=== PATIENT | male | born 1960 | race Caucasian/White ===

== ENCOUNTER → 2016-04-19 | Outpatient (CLI) | payer BC ==
[~2016-04-19] MED LIST: AMITRIPTYLINE H10 MG PO; ASPIR 8181 M1 PO; ASPIR-LOW81 MG PO; ATORVASTATIN CA20 MG PO; COZAAR100 MG PO; COZAAR50 MG PO; FAMOTIDINE20 MG PO; FARXIGA5 MG PO; GABAPENTIN600 MG PO; JANUMET 50/11 TABLET PO; JANUMET XR 50-1 EAC1 PO; JARDIANCE25 MG PO; LIPITOR20 MG PO; LO-DOSE ASPIRIN81 M1 PO; METFORMIN HCL500 MG PO; METOCLOPRAM5 MG/1 M1 PO; NICOTINE PATCH1 EAC1 TD; OXYCODONE HCL5 MG PO; OXYCONTIN20 MG PO; PERCOCET 10/1 TABLET PO; SINGULAIR10 MG PO; SYMBICORT60 INHALAT IH; TRULICITY1.5 MG/0.5 SC; TYLENOL REGULA325 MG PO; VOLTAREN75 MG PO; ZYVOX600 MG PO
== END | disposition home or self-care (01) ==
LOC: PICC 08:59
DX: L97.511 Non-pressure chronic ulcer of other part of right foot limited to breakdown of skin (principal)
CPT/HCPCS: 76937

== ENCOUNTER 2017-01-09 07:28 | Day surgery (SDC) | payer BC ==
[~2017-01-09] VITALS: Ht 185.4 cm; Wt 104.0 kg
[~2017-01-09 07:28] MED LIST changes: +AMLODIPINE BESYL5 MG PO; +GLYXAMBI 25 MG1 EACH PO
[2017-01-09 08:23] LABS: HEMATOCRIT 47.4 % (38.0-50.0); MCH 29.4 PG (29.0-34.0); MCHC 32.9 G/DL (30.0-36.0); MCV 89.4 FL (86-99); MEAN PLAT.VOLUME 10.2 uM^3 (9.0-12.4); PLATELET COUNT 283 K/uL (156-360); RBC DIS.WIDTH-CV 13.4 % (11.8-14.6); RBC DIS.WIDTH-SD 44.4 % (39-53); WHITE BLOOD COUNT 8.8 K/uL (4.1-10.2)
[2017-01-09 08:37] LABS: POINT-OF-CARE METER ID UU13113696
[2017-01-09 08:54] LABS: ANION GAP 7 MEQ/L (2-14); CHLORIDE 107 MEQ/L (99-109); POTASSIUM 5.5 MEQ/L (3.7-5.4); SAMPLE HEMOLYSIS CHECK 0; SAMPLE ICTERIC CHECK 0; SAMPLE LIPEMIA CHECK 0; SODIUM 142 MEQ/L (136-147)
[2017-01-09 08:59] LABS: GFR ESTIMATE (CALCULATED) > 59 mL/min/; GLUCOSE 161 mg/dL (70-99); UREA NITROGEN (BUN) 6 mg/dL (9-23)
== END 2017-01-09 15:00 | disposition home or self-care (01) ==
LOC: CATH 07:28
PROVIDERS: Internal Medicine Cardiovascular Disease
DX: I25.10 Atherosclerotic heart disease of native coronary artery without angina pectoris (principal); I10 Essential (primary) hypertension; E11.9 Type 2 diabetes mellitus without complications; E66.9 Obesity, unspecified; Z68.33 Body mass index [BMI] 33.0-33.9, adult; Z79.82 Long term (current) use of aspirin; Z79.84 Long term (current) use of oral hypoglycemic drugs; Z89.512 Acquired absence of left leg below knee; Z82.49 Family history of ischemic heart disease and other diseases of the circulatory system; F17.200 Nicotine dependence, unspecified, uncomplicated; E78.01 Familial hypercholesterolemia
CPT/HCPCS: 80048; 82948; 85027; 93005; C1769; C1887; J1644; J2250; J3010